=== PATIENT | female | born 1985 | race Caucasian/White ===

== ENCOUNTER 2016-07-18 19:17 | Emergency (ER) | payer MEDICAID, OTHER ==
[~2016-07-18] VITALS: Ht 157.5 cm; Wt 68.0 kg
[2016-07-18 19:34] VITALS: Ht 157.5 cm; Wt 68.0 kg
[2016-07-18] MEDS ORDERED: morphine 4 MG/ML VIAL IV STA (21:11)
[2016-07-18] MEDS ORDERED: ONDANSETRON 4 MG INJ IV STA (21:11)
[2016-07-18 21:53] LABS: BASOPHILS % 0.4 % (0.0-2.0); EOSINOPHILS # 0.1 10^3/ul (0.0-0.5); EOSINOPHILS % 1.3 % (0.0-7.0); HEMATOCRIT 40.7 % (37.0-47.0); HEMOGLOBIN 13.6 g/dl (12.0-16.0); LYMPHOCYTES # 2.3 10^3/ul (0.8-2.9); LYMPHOCYTES % 37.4 % (15.0-51.0); MEAN CORPUSCULAR HEMOGLOBIN 29.1 pg (29.0-33.0); MEAN CORPUSCULAR HGB CONC 33.5 g/dl (32.0-37.0); MEAN CORPUSCULAR VOLUME 86.9 fl (82.0-101.0); MEAN PLATELET VOLUME 10.2 fl (7.4-10.4); MONOCYTE # 0.6 10^3/ul (0.3-0.9); NEUTROPHIL # 3.1 10^3/ul (1.6-7.5); NEUTROPHILS % 50.9 % (39.0-77.0); PLATELET COUNT 188 10^3/UL (140-440); RED BLOOD COUNT 4.68 10^6/ul (4.20-5.40); RED CELL DISTRIBUTION WIDTH 13.7 % (11.5-14.5); UNCORRECTED WBC 6.1 10^3/ul (4.8-10.8); WHITE BLOOD COUNT 6.1 10^3/ul (4.8-10.8)
[2016-07-18 21:55] LABS: CONDITION 1
[2016-07-18 21:59] LABS: ALBUMIN 4.3 g/dl (3.3-4.9)
[2016-07-18 22:00] LABS: POTASSIUM 3.5 mmol/L (3.5-5.1)
[2016-07-18 22:02] LABS: ALBUMIN/GLOBULIN RATIO 1.3; BILIRUBIN,INDIRECT 0.2 mg/dl (0-1.1); BILIRUBIN,TOTAL 0.2 mg/dl (0.2-1.3); CREATININE 0.64 mg/dl (0.44-1.00); TOTAL PROTEIN 7.6 g/dl (6.1-8.1)
[2016-07-18 22:03] LABS: CALCIUM 9.7 mg/dl (8.4-10.2)
--- NOTE | 2016-07-18 22:38 | RADRPT ---
PROCEDURE: US Pelvis. CLINICAL INDICATION: Pelvic pain TECHNIQUE: Multiple sonographic images of the pelvis were obtained utilizing a transabdominal and endovaginal technique. The images were reviewed on a PACS workstation. COMPARISON: None. FINDINGS: The uterus is visualized and measures 13.8 x 4 x 5.80 cm in size. An intrauterine device is seen wit h the location in the lower uterine segment and cervical region. The endometrial echo complex is nor mal and measures 9.9 mm. There is no evidence for free fluid. The right ovary has a normal echotextu re and measures 3.7 x 1.8 x 2.2 cm. The left ovary has a normal echotexture and measures 3 x 2.4 x 2.4 cm. No adnexal masses are noted. IMPRESSION: Intrauterine device located in the region of the lower uterine segment and cervical region. RPTAT: HPNM Physician Myrna Date Time Electronically viewed and signed by Physician Myrna on 07/18/2016 22:37 /
[2016-07-18 22:46] LABS: ADD UMIC YES; URINE BILIRUBIN (Dip) NEGATIVE (NEGATIVE); URINE BLOOD (Dip) NEGATIVE (NEGATIVE); URINE COLOR LT. YELLOW (YELLOW); URINE GLUCOSE (Dip) NEGATIVE (NEGATIVE); URINE KETONES (Dip) NEGATIVE (NEGATIVE); URINE LEUKOCYTE ESTERASE (Dip) TRACE (NEGATIVE); URINE NITRITE (Dip) NEGATIVE (NEGATIVE); URINE TOTAL PROTEIN (Dip) NEGATIVE (NEGATIVE); URINE UROBILINOGEN (Dip) 0.2 E.U./dL (0.1-1.0)
[2016-07-18 23:35] LABS: SQUAMOUS EPITHELIAL CELL,UR MANY; URINE RBCS 0-2 /HPF (0)
[2016-07-18 23:36] LABS: BACTERIA,URINE FEW
--- NOTE | 2016-07-18 23:57 | RADRPT ---
PROCEDURE: CT Abdomen and Pelvis without contrast. CLINICAL INDICATION: Left lower quadrant pain. TECHNIQUE: CT scan of the abdomen and pelvis was performed on a multidetector slice CT scanner. N o intravenous contrast material was utilized. Sagittal and coronal reformatted images were obtained from the axial source images. Images were reviewed on a high-resolution PACS workstation. Exam CTDl vol = 9.6 mGy and DLP = 479 Gy-cm. One of the following 3 dose reduction techniques were used: Auto mated exposure control; adjustment of the mA and/or kV according to patient size; or use of iterativ e reconstruction technique. COMPARISON: Pelvic ultrasound 07/18/2016 FINDINGS: There is no obstruction or ileus. There is stool throughout the colon. The appendix is visualized an d is normal in size. There is no evidence for acute appendicitis. There is no evidence for diverti culitis. There is a small amount of pelvic free fluid. The liver is overall normal in size. No intrahepatic lesions are identified. The gallbladder is no rmal in appearance. There is no definite biliary ductal dilation. Pancreas is normal in appearance. Spleen is unremarkable.. There are no adrenal masses. The aorta is normal caliber. Kidneys are normal in appearance without hydronephrosis, mass or calculus. Ureters are of normal ca liber. There is an incomplete distension A urinary bladder with nonspecific wall thickening. An IUD is present within the lower uterine segment. Uterus otherwise gross unremarkable. Ovaries a re not well characterized. The bones are unremarkable. Limited evaluation lung bases is unremarkable. IMPRESSION: 1. IUD in the lower uterine segment. 2. Small amount of pelvic free fluid. 3. Stool throughout the colon. No bowel obstruction or ileus. 4. No evidence for appendicitis or diverticulitis. 5. Incompletely distended urinary bladder with nonspecific wall thickening. A cystitis cannot be e xcluded. 6. Otherwise negative. RPTAT: HMVK .Long Gillespie MD, Date Time Electronically viewed and signed by .Long Gillespie MD, MD on 07/18/2016 23:57 .K/
[2016-07-19] MEDS ORDERED: DOCU-144 PO
[2016-07-19] MEDS ORDERED: POLY17PO6 PO
--- NOTE | 2016-07-19 00:04 | ERD ---
ER Documentation Chief Complaint Date/Time DATE: 07/19/16 TIME: 00:01 Chief Complaint LOWER ABD PAIN SINCE YESTERDAY HPI Patient is a 30-year-old female who presents to the ED with left lower quadrant abdominal pain and left pelvic pain for 2 days. She denies nausea, vomiting or diarrhea. She says that the pain is constant. Denies fever or chills. She states that she has a history of constipation and has not had a bowel movement in 2 days. Denies abnormal vaginal bleeding. Denies dysuria or urgency denies back pain no other complaints ROS All systems reviewed and are negative except as per history of present illness. Medications Home Meds Active Scripts Docusate Sodium* (Colace*) 100 Mg Capsule, 100 MG PO TID, #30 CAP Prov:TYRON ANDERSON PA-C 07/19/16 Polyethylene Glycol* (Miralax*) 17 Gm Powd.pack, 17 GM PO DAILY, #7 Prov:TYRON ANDERSON PA-C 07/19/16 Allergies Allergies: Coded Allergies: No Known Allergy (Unverified , 07/18/16) PMhx/Soc Medical and Surgical Hx: pt denies Medical Hx, pt denies Surgical Hx History of Surgery: No Anesthesia Reaction: No Hx Neurological Disorder: No Hx Respiratory Disorders: No Hx Cardiac Disorders: No Hx Psychiatric Problems: No Hx Miscellaneous Medical Probl: No Hx Alcohol Use: No Hx Substance Use: No Hx Tobacco Use: No Physical Exam Vitals Vital Signs Date Time Temp Pulse Resp B/P Pulse Ox O2 Delivery O2 Flow Rate FiO2 07/19/16 00:23 98.3 70 16 106/69 100 07/18/16 19:34 98.1 81 18 128/65 100 Physical Exam GENERAL: Well-developed, well-nourished female. Appears in mild distress LUNG: Clear to auscultation bilaterally. No rhonchi, wheezing, rales or coarse breath sounds. HEART: Regular rate and rhythm. No murmurs, rubs or gallops. ABDOMEN: No scars, ecchymosis or rashes noted. Soft, and nondistended. Positive bowel sounds in all four quadrants. No rebound tenderness, no guarding. (-) McBurneys point tenderness. No CVA tenderness. tenderness in llq as well as left pelvic pain. BACK: No midline tenderness. Extremities: Equal pulses bilaterally. No peripheral clubbing, cyanosis or edema. No unilateral leg swelling. NEUROLOGIC: Alert and oriented. Moving all four extremities. 5/5 strength in all extremities. Normal speech. Steady gait. SKIN: Normal color. Warm and dry. No rashes or lesions. Capillary refill < 2 seconds Result Diagram: 07/18/16211907/18/162119 Results 24 hrs Laboratory Tests Test 07/18/16 21:20 07/18/16 22:05 Alanine Aminotransferase (ALT/SGPT) 52IU/L Albumin 4.3g/dl Albumin/Globulin Ratio 1.30 Alkaline Phosphatase 73IU/L Anion Gap 18 Aspartate Amino Transf (AST/SGOT) 34IU/L Basophils # 0.010^3/ul Basophils % 0.4% Blood Urea Nitrogen 8mg/dl Calcium Level 9.7mg/dl Carbon Dioxide Level 23mmol/L Chloride Level 105mmol/L Creatinine 0.64mg/dl Direct Bilirubin 0.00mg/dl Eosinophils # 0.110^3/ul Eosinophils % 1.3% Globulin 3.30g/dl Glucose Level 97mg/dl Hematocrit 40.7% Hemoglobin 13.6g/dl Indirect Bilirubin 0.2mg/dl Lipase 123U/L Lymphocytes # 2.310^3/ul Lymphocytes % 37.4% Mean Corpuscular Hemoglobin 29.1pg Mean Corpuscular Hemoglobin Concent 33.5g/dl Mean Corpuscular Volume 86.9fl Mean Platelet Volume 10.2fl Monocytes # 0.610^3/ul Monocytes % 10.0% Neutrophils # 3.110^3/ul Neutrophils % 50.9% Nucleated Red Blood Cells # 0.010^3/ul Nucleated Red Blood Cells % 0.0/100WBC Platelet Count 19485^3/UL Potassium Level 3.5mmol/L Red Blood Count 4.6810^6/ul Red Cell Distribution Width 13.7% Sodium Level 142mmol/L Total Bilirubin 0.2mg/dl Total Protein 7.6g/dl White Blood Count 6.110^3/ul Urine Bacteria FEW Urine Bilirubin NEGATIVE Urine Clarity SLIGHTLY CLOUDY Urine Color LT. YELLOW Urine Glucose NEGATIVE% Urine Hemoglobin NEGATIVE Urine Ketones NEGATIVE Urine Leukocyte Esterase TRACE Urine Microscopic RBC 0-2/HPF Urine Microscopic WBC 0-2/HPF Urine Nitrite NEGATIVE Urine Specific [place] <=1.005 Urine Squamous Epithelial Cells MANY Urine Total Protein NEGATIVE Urine Urobilinogen 0.2 E.U./dL Urine pH 7.5 Current Medications Medications (Trade) Dose Ordered Sig/Isa Route PRN Reason Start Time Stop Time Status Last Admin Dose Admin Morphine Sulfate (morphine) 4 mg ONCE STAT IV 07/18/16 21:11 07/18/16 21:14 DC 07/18/16 21:34 Ondansetron HCl (Zofran Inj) 4 mg ONCE STAT IV 07/18/16 21:11 07/18/16 21:14 DC 07/18/16 21:26 Procedures/MDM ER COURSE: I kept the patient and/or family informed of laboratory and diagnostic imaging results throughout the emergency room course. EKG, MONITORS, & DIAGNOSTIC IMAGING: [place] [id number] Radiology Main Line: [phone] DIAGNOSTIC IMAGING REPORT Patient: YENI LAIRD : 1985 Age: 30 Sex: F MR #: [id number] DOS: 07/18/162110 Ordering MD: TYRON ANDERSON PA-C Location: [facility] Room/Bed: PROCEDURE: CT Abdomen and Pelvis without contrast. CLINICAL INDICATION: Left lower quadrant pain. TECHNIQUE: CT scan of the abdomen and pelvis was performed on a multidetector slice CT scanner. No intravenous contrast material was utilized. Sagittal and coronal reformatted images were obtained from the axial source images. Images were reviewed on a high-resolution PACS workstation. Exam CTDlvol = 9.6 mGy and DLP = 479 Gy-cm. One of the following 3 dose reduction techniques were used: Automated exposure control; adjustment of the mA and/or kV according to patient size; or use of iterative reconstruction technique. COMPARISON: Pelvic ultrasound 07/18/2016 FINDINGS: There is no obstruction or ileus. There is stool throughout the colon. The appendix is visualized and is normal in size. There is no evidence for acute appendicitis. There is no evidence for diverticulitis. There is a small amount of pelvic free fluid. The liver is overall normal in size. No intrahepatic lesions are identified. The gallbladder is normal in appearance. There is no definite biliary ductal dilation. Pancreas is normal in appearance. Spleen is unremarkable.. There are no adrenal masses. The aorta is normal caliber. Kidneys are normal in appearance without hydronephrosis, mass or calculus. Ureters are of normal caliber. There is an incomplete distension A urinary bladder with nonspecific wall thickening. An IUD is present within the lower uterine segment. Uterus otherwise gross unremarkable. Ovaries are not well characterized. The bones are unremarkable. Limited evaluation lung bases is unremarkable. IMPRESSION: 1. IUD in the lower uterine segment. 2. Small amount of pelvic free fluid. 3. Stool throughout the colon. No bowel obstruction or ileus. 4. No evidence for appendicitis or diverticulitis. 5. Incompletely distended urinary bladder with nonspecific wall thickening. A cystitis cannot be excluded. 6. Otherwise negative. RPTAT: HMVK .Long Gillespie MD, MD Date Time Electronically viewed and signed by .Long Gillespie MD, MD on 07/18/2016 23:57 .K/ CC: TYRON ANDERSON PA-C [place] [address] Radiology Main Line: [phone] DIAGNOSTIC IMAGING REPORT Patient: YENI LAIRD : 1985 Age: 30 Sex: F [id number] DOS: 07/18/16 2111 Ordering MD: TYRON ANDERSON PA-C Location: [facility] Room/Bed: PROCEDURE: US Pelvis. CLINICAL INDICATION: Pelvic pain TECHNIQUE: Multiple sonographic images of the pelvis were obtained utilizing a transabdominal and endovaginal technique. The images were reviewed on a PACS workstation. COMPARISON: None. FINDINGS: The uterus is visualized and measures 13.8 x 4 x 5.80 cm in size. An intrauterine device is seen with the location in the lower uterine segment and cervical region. The endometrial echo complex is normal and measures 9.9 mm. There is no evidence for free fluid. The right ovary has a normal echotexture and measures 3.7 x 1.8 x 2.2 cm. The left ovary has a normal echotexture and measures 3 x 2.4 x 2.4 cm. No adnexal masses are noted. IMPRESSION: Intrauterine device located in the region of the lower uterine segment and cervical region. RPTAT: HPNM Physician Myrna Date Time Electronically viewed and signed by Jared Bingham Physician on 07/18/2016 22 :37 / CC: TYRON ANDERSON PA-C MEDICATIONS: Morphine and Zofran. Patient told medication well and seen improvement in symptoms LAB INTERPRETATION: CBC showed no evidence of systemic infection or severe anemia. CMP showed no evidence of electrolyte abnormalities, severe acidosis, alkalosis, renal failure , or liver disease. Lipase showed no evidence of acute pancreatitis. UA shows no nitrites or hematuria. Shows trace leukocytes but many epithelial cells. Urine test was negative. MEDICAL DECISION MAKING: This is a 30-year-old female who presents with abdominal pain. Vital signs were reviewed. Patient is afebrile. Patient is not hypoxic. Patient is not toxic or ill-appearing. Patient likely has constipation versus abdominal pain of uncertain etiology. Low suspicion for ACS, AAA, perforated ulcer, bowel obstruction, cholecystitis, choledocholithiasis, cholangitis, pancreatitis, hepatic abscess, appendicitis, diverticulitis, gastroenteritis, hepatitis, peptic ulcer disease, HELLP syndrome. Low suspicion for ovarian torsion, PID, tuboovarian abscess, ectopic , bowel obstruction, pyelonephritis, UTI, appendicitis, cervicitis, septic , molar , HELLP syndrome, preeclampsia, eclampsia, placenta previa, placenta abruptia. DISCHARGE: At this time, patient is stable for discharge and outpatient management with no new complaints during the ER course. Patient was sent home with MiraLAX and Colace and to follow-up with primary care and GI specialist.. Patient will be discharged home with instructions to recheck for new or worsening symptoms such as fever, nausea, weakness, LOC and to follow up with primary care in the next 1 -2 days. Patient was advised to return to the ER for any new or worsening symptoms. Plan was discussed and patient and/or family understands and agrees. Home instructions were given. Departure Diagnosis: Primary Impression: Constipation Constipation type: unspecified constipation type Qualified Code: K59.00 - Constipation, unspecified constipation type Additional Impression: Abdominal pain Abdominal location: unspecified location Qualified Code: R10.9 - Abdominal pain, unspecified location Condition: Stable Patient Instructions: Abdominal Pain, Treating Constipation Additional Instructions: Llame al doctor MAANA y dutch narciso PAVAN PARA DENTRO DE 1-2 HARPER.Dgale a la secretaria que nosotros le instruimos hacer esta pavan.Avise o llame si camacho condicin se empeora antes de la pavan. Regresa aqui si peor o no mejor. TYRON ANDERSON PA-C Jul 19, 2016 00:04
[2016-07-19 00:23] VITALS: BP 106/69; PULSE 70; RESP 16; TEMP 98.3
== END 2016-07-19 00:23 | disposition home or self-care (01) ==
LOC: FTE 19:17
DX: K59.00 Constipation, unspecified (principal); R10.2 Pelvic and perineal pain
CPT/HCPCS: 36415; 74176; 76856; 80053; 81001; 83690; 85025; 96374; 96375; J2270; J2405; Z7502; 81003